=== PATIENT | female | born 1955 | race Hispanic/Latino ===

== ENCOUNTER → 2020-06-04 | Outpatient (CLI) | payer MEDICAID ==
[~2020-06-04] MED LIST: AEC81 PO; ALEN70TA69 PO; BACL10TA PO; BUSP10TA3 PO; CHOL100040 PO; CLOP75TA32 PO; DULO60CA64 PO; FAMO20TA8 PO; GABA600T10 PO; GEMF600T5 PO; HYDR12.54 PO; LORA10CA9 PO; MONT10TA96 PO; ONDA4TAB10 PO; PANT40TA54 PO; RANI-662 PO; REGADENOSON 0.4 MG/5 ML PF SYG IVP SCH; RISP3TAB PO; SERT100T12 PO; TIZA2CAP9 PO; albuterol; iron
== END | disposition home or self-care (01) ==
LOC: SHCH 08:47
PROVIDERS: ATTEND Internal Medicine Cardiovascular Disease
DX: I48.0 Paroxysmal atrial fibrillation (principal); I25.810 Atherosclerosis of coronary artery bypass graft(s) without angina pectoris
CPT/HCPCS: 78452; 93017; A9500 ×2; J2785; 96374

== ENCOUNTER 2020-06-14 07:25 | Day surgery (SDC) | payer MEDICAID ==
[~2020-06-14] VITALS: Ht 157.5 cm; Wt 72.6 kg
[~2020-06-14 07:25] MED LIST changes: -AEC81 PO; -ALEN70TA69 PO; -CLOP75TA32 PO; -FAMO20TA8 PO; -GEMF600T5 PO; -HYDR12.54 PO; -MONT10TA96 PO; -REGADENOSON 0.4 MG/5 ML PF SYG IVP SCH; -SERT100T12 PO
[2020-06-14 11:00] LABS: BASOPHILS % (AUTO) 0.2 % (0.0-5.0); EOSINOPHILS % (AUTO) 0.7 % (0.0-8.0); HEMATOCRIT 34.9 % (36-48); LYMPHOCYTES % (AUTO) 15.1 % (21.0-51.0); MEAN CORPUSCULAR HEMOGLOBIN 32.2 pg (27.0-33.0); MEAN CORPUSCULAR HGB CONC 31.8 g/dL (32.0-36.0); MEAN CORPUSCULAR VOLUME 101.2 fL (79-99); MONOCYTES % (AUTO) 6.4 % (3.0-13.0); PLATELET COUNT (AUTO) 306 K/uL (130-400); RED BLOOD CELL COUNT(AUTO) 3.45 MIL/uL (4.00-5.50); RED CELL DISTRIBUTION WIDTH 14.2 % (11.0-15.5); WHITE BLOOD COUNT (AUTO) 14.8 K/uL (4.8-10.8)
[2020-06-14 11:07] LABS: CREATININE 0.8 mg/dL (0.5-1.5); POTASSIUM 4.4 mmol/L (3.5-5.1)
[2020-06-14 11:11] LABS: APPEARANCE,URINE Cloudy (CLEAR); BILIRUBIN,URINE Negative (NEGATIVE); COLOR,URINE Dark Yellow (YELLOW); GLUCOSE, URINE (UA) Negative (NEGATIVE); KETONES,URINE Negative (NEGATIVE); LEUKOCYTE ESTERASE ,URINE Trace (NEGATIVE); NITRATE,URINE Negative (NEGATIVE); OCCULT BLOOD,URINE Negative (NEGATIVE); PROTEIN,URINE Trace mg/dL (NEGATIVE)
[2020-06-14 11:21] LABS: BACTERIA,URINE Rare /HPF (None Seen); MUCUS,URINE Rare LPF (None Seen); RBC,URINE 0-1 /HPF (0-1); SQUAMOUS EPITHELIAL CELL,UR Few /HPF (0-2); WBC,URINE 0-1 /HPF (0-1)
[2020-06-14 11:52] LABS: INR 0.92 (0.85-1.15); PARTIAL THROMBOPLASTIN TIME 24.2 SEC (26.3-35.5)
[2020-06-15 10:49] VITALS: BP 134/67
[2020-06-15] MEDS ORDERED: HYDR12.54 PO (11:30)
[2020-06-15] MEDS ORDERED: ALEN70TA69 PO (11:30)
[2020-06-15] MEDS ORDERED: MONT10TA96 PO (11:30)
[2020-06-15] MEDS ORDERED: CLOP75TA32 PO (11:30)
[2020-06-15] MEDS ORDERED: FAMO20TA8 PO (11:30)
[2020-06-15] MEDS ORDERED: GEMF600T5 PO (11:30)
[2020-06-15] MEDS ORDERED: SERT100T12 PO (11:30)
[2020-06-15] MEDS ORDERED: AEC81 PO (11:30)
--- NOTE | 2020-06-15 12:02 | NUR ---
LABS ABNORMAL LABS INCLUDING HEMOGLOBIN, HEMATOCRIT, WBC'S, PTT, AND URINALYSIS REPORTED TO JOHN DIA. NO NEW TELEPHONE ORDERS RECEIVED. OK TO PROCEED WITH SCHEDULED PROCEDURE.
[2020-06-16] VITALS (10 sets, daily range): BP systolic 113–133; BP diastolic 44–58
[2020-06-16] MEDS ORDERED: SODIUM CHLORIDE 0.9% 1000ML 1,000 ML IV ONE (08:24)
[2020-06-16] MEDS ORDERED: HEPARIN SODIUM 1000UNIT/ML 10ML VIAL ONE (09:51)
[2020-06-16] MEDS ORDERED: SODIUM BICARB 50MEQ 50ML VIAL 50 ML ONE (09:51)
[2020-06-16] MEDS ORDERED: MIDAZOLAM HCL 1 MG/ML 2ML VIAL ONE (09:51)
[2020-06-16] MEDS ORDERED: LIDOCAINE HCL 2% 20ML ONE (09:51)
[2020-06-16] MEDS ORDERED: IODIXANOL 320 MG/ML 100 ML VIAL ONE (09:51)
[2020-06-16] MEDS ORDERED: NITROGLYCERIN 2 MG/VIAL VIAL IV ONE (09:52)
--- NOTE | 2020-06-16 09:55 | NUR ---
consult: dr. almaraz made aware of patients fall 06/15/20, rt ankle swollen and ok to proceed with procedure.
[2020-06-16] MEDS ORDERED: FENTANYL CITRATE PF 50 MCG/1 ML 2ML VIAL ONE (10:15)
[2020-06-16] MEDS ORDERED: SODIUM CHLORIDE 0.9% 1000ML 1,000 ML IV SCH (11:30)
--- NOTE | 2020-06-16 14:40 | NUR ---
PT DISCHARGED HOME. NO HEMATOMA OR BLEEDING TO RT GROIN AFTER AMBULATING IN ROOM. NO C/O PAIN. IV CATH REMOVED INTACT. PRINTED AND VERBAL DISCHARGE INSTRUCTIONS GIVEN. VERBALIZES UNDERSTANDING. TO CAR VIA WHEELCHAIR
== END 2020-06-16 14:40 | disposition home or self-care (01) ==
LOC: DAH 07:25
PROVIDERS: ATTEND Internal Medicine Cardiovascular Disease
DX: K55.029 Acute infarction of small intestine, extent unspecified (principal); K55.1 Chronic vascular disorders of intestine; I25.10 Atherosclerotic heart disease of native coronary artery without angina pectoris; I48.91 Unspecified atrial fibrillation; K21.9 Gastro-esophageal reflux disease without esophagitis; E78.2 Mixed hyperlipidemia; F41.9 Anxiety disorder, unspecified; F32.9 Major depressive disorder, single episode, unspecified; Z79.82 Long term (current) use of aspirin; Z79.899 Other long term (current) drug therapy; Z95.1 Presence of aortocoronary bypass graft; Z78.9 Other specified health status; Z95.5 Presence of coronary angioplasty implant and graft; Z90.710 Acquired absence of both cervix and uterus; Z98.890 Other specified postprocedural states; Z83.3 Family history of diabetes mellitus; Z82.49 Family history of ischemic heart disease and other diseases of the circulatory system; Z72.89 Other problems related to lifestyle; Z79.01 Long term (current) use of anticoagulants; Z88.8 Allergy status to other drugs, medicaments and biological substances
CPT/HCPCS: 36245 ×3; 36415; 71045; 75726 ×3; 80048; 81001; 85025; 85610; 85730; 93005; A4215; A4216; A4222; A4223 ×3; A4606; A4663; C1758; C1760; C1894 ×2; J1644; J2250; J3010; J3490 ×3; J7030; Q9967; 99156; 99157

== ENCOUNTER → 2020-06-22 | Outpatient (CLI) | payer MEDICAID ==
[~2020-06-22] MED LIST changes: +AEC81 PO; +ALEN70TA69 PO; -BUSP10TA3 PO; -CHOL100040 PO; +CLOP75TA32 PO; -DULO60CA64 PO; +FAMO20TA8 PO; +GEMF600T5 PO; +HYDR12.54 PO; +MONT10TA96 PO; -ONDA4TAB10 PO; -PANT40TA54 PO; -RANI-662 PO; +SERT100T12 PO; -TIZA2CAP9 PO; -albuterol; -iron
== END | disposition home or self-care (01) ==
LOC: SHCH 10:00
PROVIDERS: ATTEND Internal Medicine Cardiovascular Disease
DX: I72.4 Aneurysm of artery of lower extremity (principal)
CPT/HCPCS: 93926